=== PATIENT | female | born 1990 | race Caucasian/White ===

== ENCOUNTER 2016-12-02 18:14 | Emergency (ER) | payer OTHER ==
[~2016-12-02] VITALS: Ht 167.6 cm; Wt 79.0 kg
[2016-12-02] MEDS ORDERED: SUMATRIPTAN 6MG/0.5ML SQ ONE ×2 (19:30→19:46)
[2016-12-02] MEDS ORDERED: SODIUM CHLORIDE 0.9% 1,000ML IVBOLUS ONE (19:30)
[2016-12-02] MEDS ORDERED: METOCLOPRAMIDE 5 MG/ML, 2ML IVPush ONE (19:30)
[2016-12-02] MEDS ORDERED: KETOROLAC 30 MG/1 ML IVPush ONE (19:30)
[2016-12-02] MEDS ORDERED: DIPHENHYDRAMINE 50 MG/ML, 1ML IVPush ONE (19:30)
[2016-12-02] MEDS ORDERED: SODIUM CHLORIDE FLUSH 10ML SYR IVF ONE (19:30)
[2016-12-02] MEDS ORDERED: DIPHENHYDRAMINE 50 MG/ML, 1ML ONE (19:44)
[2016-12-02] MEDS ORDERED: METOCLOPRAMIDE 5 MG/ML, 2ML ONE (19:45)
[2016-12-02] MEDS ORDERED: KETOROLAC 30 MG/1 ML ONE (19:46)
[2016-12-02 19:47] LABS: HEMATOCRIT 43.3 % (34.6-47.8); HEMOGLOBIN 14.3 g/dL (11.7-16.4); WHITE BLOOD COUNT 9.6 x10^3/uL (3.4-10)
[2016-12-02 19:52] LABS: BLOOD UREA NITROGEN 11 mg/dL (7-18)
[2016-12-02 22:03] VITALS: BP 107/65
== END 2016-12-02 22:06 | disposition home or self-care (01) ==
LOC: ED 22:00
DX: G43.019 Migraine without aura, intractable, without status migrainosus (principal)
CPT/HCPCS: 36415; 70450; 80048; 82040; 84703; 85025; 96361; 96372; 96374; 96375; 99285; J1200; J1885; J2765; J3030; J7030

== ENCOUNTER 2017-09-01 12:25 | Emergency (ER) | payer MEDICAID, OTHER ==
[~2017-09-01] VITALS: Ht 167.6 cm; Wt 75.7 kg
[2017-09-01 13:59] LABS: BASOPHILS # (AUTO) 0.08 x10^3/uL (0-0.1); BASOPHILS % (AUTO) 1 % (0-1); EOSINOPHILS # (AUTO) 0.18 x10^3/uL (0-0.4); EOSINOPHILS % (AUTO) 2 % (1-7); LYMPHOCYTES # (AUTO) 1.99 x10^3/uL (1-3.4); LYMPHOCYTES % (AUTO) 23 % (22-44); MD NO; MEAN CORPUSCULAR HEMOGLOBIN 29.2 pg (27.0-34.8); MEAN CORPUSCULAR HGB CONC 32.6 g/dL (32.4-35.8); MEAN CORPUSCULAR VOLUME 89.6 fL (80-100); MEAN PLATELET VOLUME 7.3 fL (7.4-10.4); MONOCYTES % (AUTO) 8 % (2-9); NEUTROPHILS # (AUTO) 5.81 x10^3/uL (1.8-6.8); NEUTROPHILS % (AUTO) 66 % (42-75); PLATELET COUNT 341 x10^3/uL (130-400); RED BLOOD COUNT 4.38 x10^6/uL (3.82-5.3); RED CELL DISTRIBUTION WIDTH 12.7 % (9.6-15.2)
[2017-09-01 14:05] LABS: CULTURE INDICATED? YES; MICROSCOPIC INDICATED
[2017-09-01 14:10] LABS: ALANINE AMINOTRANSFERASE 20 U/L (12-78); ALBUMIN 3.3 g/dL (3.4-5.0); ANION GAP 7 mmol/L (5-15); CALCIUM 8.4 mg/dL (8.5-10.1); CHLORIDE 109 mmol/L (98-107); CREATININE 0.72 mg/dL (0.55-1.02)
[2017-09-01 14:32] LABS: ALKALINE PHOSPHATASE 54 U/L (45-117); BILIRUBIN,TOTAL 0.2 mg/dL (0.2-1.0); TOTAL PROTEIN 6.9 g/dL (6.4-8.2)
[2017-09-01] MEDS ORDERED: RHOGAM FROM BLOOD BANK 1 NOTE EA IM/IV ONE (15:00)
[2017-09-01 15:38] VITALS: BP 119/65
== END 2017-09-01 15:40 | disposition home or self-care (01) ==
LOC: ED 15:15
DX: O20.0 Threatened abortion (principal); O23.11 Infections of bladder in pregnancy, first trimester; O26.891 Other specified pregnancy related conditions, first trimester; G43.909 Migraine, unspecified, not intractable, without status migrainosus; Z3A.01 Less than 8 weeks gestation of pregnancy
CPT/HCPCS: 36415; 76801; 80053; 81001; 84702; 85025; 86850; 86900; 87077; 87086; 87186; 96372; 99285; J2790

== ENCOUNTER 2018-01-08 23:08 | Outpatient (CLI) | payer MEDICAID ==
[~2018-01-08] VITALS: Ht 160 cm; Wt 88.0 kg
[~2018-01-08 23:08] MED LIST: PRENATAL VITAMIN
[2018-01-08 23:24] LABS: MICROSCOPIC INDICATED
[2018-01-08 23:30] VITALS: BP 106/66
[2018-01-08 23:37] LABS: AMPHETAMINE SCREEN, URINE Positive (Negative); BARBITURATE SCREEN, URINE Negative (Negative); BENZODIAZEPINE SCREEN, URINE Negative (Negative); CANNABINOID SCREEN, URINE Positive (Negative); COCAINE SCREEN, URINE Negative (Negative); OPIATE SCREEN, URINE Negative (Negative)
[2018-01-08 23:39] LABS: METHADONE SCREEN, URINE Negative (Negative)
[2018-01-09] MEDS ORDERED: CEPHALEXIN 500 MG CAPSULE ONE (00:21)
[2018-01-09] MEDS ORDERED: CEPHALEXIN 500 MG CAPSULE PO ONE (00:30)
== END 2018-01-09 00:42 | disposition home or self-care (01) ==
LOC: LDOP 23:08
PROVIDERS: ATTEND Obstetrics & Gynecology
DX: O26.892 Other specified pregnancy related conditions, second trimester (principal); Z3A.25 25 weeks gestation of pregnancy; M54.5 Low back pain
CPT/HCPCS: 59025; 80307; 81001; 87086; 99211; G0463

== ENCOUNTER 2018-03-26 23:00 | Outpatient (CLI) | payer MEDICAID ==
[~2018-03-26] VITALS: Ht 167.6 cm; Wt 95.0 kg
[2018-03-26 23:31] VITALS: BP 122/80
[2018-03-26 23:37] LABS: MICROSCOPIC INDICATED
[2018-03-26 23:38] LABS: AMPHETAMINE SCREEN, URINE Negative (Negative); BARBITURATE SCREEN, URINE Negative (Negative); BENZODIAZEPINE SCREEN, URINE Negative (Negative); CANNABINOID SCREEN, URINE Negative (Negative); COCAINE SCREEN, URINE Negative (Negative); METHADONE SCREEN, URINE Negative (Negative); OPIATE SCREEN, URINE Negative (Negative)
[2018-03-27] MEDS ORDERED: PREN1TAB60 PO (00:24)
== END 2018-03-27 00:55 | disposition home or self-care (01) ==
LOC: LDOP 23:00
PROVIDERS: ATTEND Obstetrics & Gynecology
DX: O26.892 Other specified pregnancy related conditions, second trimester (principal); Z3A.36 36 weeks gestation of pregnancy
CPT/HCPCS: 59025; 80307; 81001; 99211; G0463